=== PATIENT | female | born 2005 | race Caucasian/White ===

== ENCOUNTER → 2025-01-04 10:12 | Outpatient (BNV) | payer MEDICAID, SELFPAY ==
--- NOTE | 2025-01-04 10:13 | A.OFFVIS_ITS ---
Intake Visit Reasons: Amb Documentation HPI Comments Details: new student with no immediate medical concerns. here for orientation and screening. PHQ9 = 4 and CRAFFT 0 nka PCP - [facility] Medications: none - no control - (counseling done - she is not sexually active and doesn't anticipate soon) - PMH: none no surgery etc Family: father is detention for life - she doesn't know much about him, otherwise family med history non-contributory Mood: I'm chill . she seems pretty stable tears up at discussing but able to collect self well wtih perspective. states occasionally stress gets to her but she feels it is not a mood shift so much as a bad time. EA 1 (3 or so years ago) No cig, occasional EToh (spec occasions), occasional recreational use of cannabis on weekends but it is not very important to her. SOCIAL: lives w/ baby's father and her baby. situation is currently fine. they are good friends but not romantically involved...and she seems fine with this. 5 years together. it is hard to leave baby in daycare but she is glad that it is on site. she thinks she will be able to come to school more regularly now that baby is better. she would like to lose weight consider joining the [employer] people tell her thats a crazy idea....she wants to complete school and get a job but she doesn't knw what kind of career she would like. [facility] Family History Mother No problems noted. Sister No problems noted. Sister No problems noted. Brother No problems noted. Son No problems noted. Review of Systems Const Details: Counseling visit: All systems reviewed & are unremarkable except as noted in HPI and below Reports as per HPI Resp Reports as per HPI GI Reports as per HPI Musc Reports as per HPI Neuro Reports as per HPI Psych Reports as per HPI Physical Exam Const General: cooperative, healthy appearing and no acute distress Nutritional Appearance: well nourished Orientation/consciousness: oriented to person Limitations: no limitations HEENT Other: wnl Eyes Other: wnl Chest Other: easy breathing Resp Effort & Inspection: able to speak in complete sentences Skin Other: normal in appearance Neuro General: oriented to person Psych Other: see HPI Mental Status: mental status grossly normal Speech and movement: Clear speech present Attitude: cooperative Thought process: Normal thought process present Assessment & Plan Assessment & Plan (1) control counseling: Code(s): Z30.09 - Encounter for other general counseling and advice on contraception Category: Medical (2) Counseling and coordination of care: Code(s): Z71.89 - Other specified counseling Category: Medical (3) Stress at home: Code(s): F43.9 - Reaction to severe stress, unspecified Category: Social Hx Plan general counseling and discussion. coordinating care w/ onsite counselor for young mother Coding Level of Care Code New Pt Level 3 (73758) Diagnoses control counseling Z30. Counseling and coordination of care Z71.89 Stress at home F43.9 Additional Codes PHQ-9 - 62526 - PHQ-9 Billing: Yes ([id number]) SAIMA Assessment Charge - Birgitfft: SAIMA [id number] ([id number]) Time Spent (min) 30 Comment generalized counseling and coord care of young mother PHQ-9 Over the last 2 weeks, how often have you been bothered by any of the following problems? 1. Little interest or pleasure in doing things: several days 2. Feeling down, depressed, or hopeless: several days 3. Trouble falling or staying asleep, or sleeping too much: not at all 4. Feeling tired or having little energy: several days 5. Poor appetite or overeating: several days 6. Feeling bad about yourself - or that you are a failure or have let yourself or your family down: not at all 7. Trouble concentrating on things, such as reading the newspaper or watching television: not at all 8. Moving or speaking so slowly that other people could have noticed. Or the opposite - being so fidgety or restless that you have been moving around a lot more than usual: not at all 9. Thoughts that you would be better off or of hurting yourself in some way: not at all Total score: 4 Depression Screening Interpretation: Negative Depression Screening Done: Yes 30445 - PHQ-9 Billing: Yes Source: Developed by Drs. Kristofer Mederos, Marina Pollack, Lc Waddell and colleagues, with an educational sarah from [employer]. CRAFFT Screening Tool PART A: In the PAST 12 MONTHS, did you: Drink any alcohol (more than few sips)? (Do not count sips of alcohol taken during family or restorationist events.): No Smoke any marijuana or hashish?: No Use anything else to get high? (includes illegal drugs, over the counter/prescription drugs, or things that you sniff/blanco?): No CRAFFT Assessment Charge Crafft: CRAFFT 50788
== END ==
PROVIDERS: PCP Family Medicine; Visit Provider Nurse Practitioner Family
DX: F43.9 Reaction to severe stress, unspecified (principal); Z30.09 Encounter for other general counseling and advice on contraception; Z71.89 Other specified counseling
CPT/HCPCS: 96127; 96160; 99203